=== PATIENT | male | born 1990 | race Two or more races ===

== ENCOUNTER 2016-12-14 09:39 | Emergency (ER) | payer SELFPAY ==
[~2016-12-14] VITALS: Ht 160 cm; Wt 63.5 kg
[2016-12-14 09:39] VITALS: BP 128/78
[2016-12-14 10:08] LABS: BASOPHILS % (AUTO) 0.9 % (0.0-2.0); EOSINOPHILS % (AUTO) 1.5 % (0.0-3.0); LYMPHOCYTES % (AUTO) 22.7 % (20.0-45.0); MEAN CORPUSCULAR HEMOGLOBIN 31.1 PG (27.0-31.0); MEAN CORPUSCULAR HGB CONC 34.4 G/DL (32.0-36.0); MEAN CORPUSCULAR VOLUME 91 FL (80-99); MEAN PLATELET VOLUME 7.1 FL (6.5-10.1); MONOCYTES % (AUTO) 8.6 % (1.0-10.0); NEUTROPHILS % (AUTO) 66.2 % (45.0-75.0); PLATELET COUNT 304 K/UL (150-450); RED BLOOD COUNT 4.66 M/UL (4.70-6.10); RED CELL DISTRIBUTION WIDTH 12.3 % (11.6-14.8); WHITE BLOOD COUNT 8.5 K/UL (4.8-10.8)
--- NOTE | 2016-12-14 10:08 | Emergency Room Report ---
History of Present Illness General Chief Complaint: Alcohol Intoxication Source: Patient, EMS Present Illness HPI Patient presents via EMS. [facility] were called because he was somebody's backyard. They claim he's been drinking alcohol. His Accu-Chek was normal in the field. He refuses to answer. No other history is available. Allergies: Coded Allergies: UNABLE TO ASSESS (Unverified , 12/14/16) Patient History Limited by: medical condition Past Medical History: see triage record Social History Narrative brought by EMS Reviewed Nursing Documentation: PMH: Agreed, PSxH: Agreed Nursing Documentation-PMH Past Medical History: Deferred Review of Systems All Other Systems: limited Physical Exam Vital Signs Date Time Temp Pulse Resp B/P Pulse Ox O2 Delivery O2 Flow Rate FiO2 12/14/16 09:34 98.1 89 16 128/78 100 Room Air Sp02 EP Interpretation: reviewed, normal General Appearance: well appearing, no apparent distress, alert - refuses to answer Head: normocephalic Eyes: bilateral eye PERRL, bilateral eye Scleral Injection ENT: moist mucus membranes Neck: supple Respiratory: lungs clear, normal breath sounds Cardiovascular #1: regular rate, rhythm Cardiovascular #2: 2+ radial (R) Gastrointestinal: normal inspection, normal bowel sounds, non tender, no mass, non-distended Musculoskeletal: back normal, gait/station normal, normal range of motion Neurologic: alert, motor strength/tone normal, DTRs symmetric, sensory intact Psychiatric: depressed affect, other - flat affect Skin: normal inspection, warm/dry, abrasions - R forearm X 2 Medical Decision Making Diagnostic Impression: Primary Impression: Evalution of altered mental status Additional Impressions: Suspected substance abuse AMA ER Course Patient presents with altered level of consciousness. Differential includes alcohol ingestion, other drug ingestion, alert right abnormality, exacerbation of psychiatric illness amongst others. Evaluation will be performed with labs. The patient has a nonfocal neurologic exam even though he is not answering us at this time. There is no evidence of any head trauma and a CT is not ordered. In addition his lungs are clear in the chest x-ray is not ordered at this time. The abrasions on the R forearm need re-evaluation to ascertain if intention granger. The patient is reevaluated and started answering some questions. He refuses to give his name but admits to having imbibed alcohol. He says he has some pain in his stomach at this time. The patient is receiving IV hydration. Denies SI or HI. Writes note that he wants an apartment. Labs significant for mildly elevated CK and negative alcohol. Urine not provided. At 11:10 patient walked out door. I followed him and discussed risk of his leaving. He stated he felt fine. Laboratory Tests Test 12/14/16 09:55 White Blood Count 8.5 K/UL (4.8-10.8) Red Blood Count 4.66 M/UL (4.70-6.10) L Hemoglobin 14.5 G/DL (14.2-18.0) Hematocrit 42.2 % (42.0-52.0) Mean Corpuscular Volume 91 FL (80-99) Mean Corpuscular Hemoglobin 31.1 PG (27.0-31.0) H Mean Corpuscular Hemoglobin Concent 34.4 G/DL (32.0-36.0) Red Cell Distribution Width 12.3 % (11.6-14.8) Platelet Count 304 K/UL (150-450) Mean Platelet Volume 7.1 FL (6.5-10.1) Neutrophils (%) (Auto) 66.2 % (45.0-75.0) Lymphocytes (%) (Auto) 22.7 % (20.0-45.0) Monocytes (%) (Auto) 8.6 % (1.0-10.0) Eosinophils (%) (Auto) 1.5 % (0.0-3.0) Basophils (%) (Auto) 0.9 % (0.0-2.0) Sodium Level 140 mEQ/L (135-145) Potassium Level 3.7 mEQ/L (3.4-4.9) Chloride Level 98 mEQ/L (98-107) Carbon Dioxide Level 28 mEQ/L (20-30) Anion Gap 14 (5-15) Blood Urea Nitrogen 11 mg/dL (7-23) Creatinine 0.7 mg/dL (0.7-1.2) Estimate Glomerular Filtration Rate > 60 mL/min (>60) Glucose Level 107 mg/dL (74-106) H Calcium Level 9.5 mg/dL (8.6-10.2) Total Bilirubin 0.5 mg/dL (0.0-1.2) Aspartate Amino Transferase (AST) 50 U/L (5-40) H Alanine Aminotransferase (ALT) 60 U/L (3-41) H Alkaline Phosphatase 83 U/L (40-129) Total Creatine Kinase 1723 U/L (38-174) H Total Protein 7.5 g/dL (6.6-8.7) Albumin 4.1 g/dL (3.5-5.2) Globulin 3.4 g/dL Albumin/Globulin Ratio 1.2 (1.0-2.7) Salicylates Level < 1 mg/dL (10-30) L Acetaminophen Level < 10 ug/mL (10-30) L Serum Alcohol < 10 mg/dL Last Vital Signs Date Time Temp Pulse Resp B/P Pulse Ox O2 Delivery O2 Flow Rate FiO2 12/14/16 11:06 98.1 89 16 128/78 100 Room Air Status: improved Disposition: AGAINST MEDICAL ADVICE Condition: Improved Referrals: NOT CHOSEN IPA/,REFERRING (PCP) Gerry Stevens M.D. December 14, 2016 10:08
[2016-12-14 10:19] LABS: ACETAMINOPHEN < 10 ug/mL (10-30); ALANINE AMINOTRANSFERASE 60 U/L (3-41); ALBUMIN/GLOBULIN RATIO 1.2 (1.0-2.7); ALCOHOL < 10 mg/dL; ANION GAP 14 (5-15); ASPARTATE AMINO TRANSFERASE 50 U/L (5-40); CALCIUM 9.5 mg/dL (8.6-10.2); CARBON DIOXIDE 28 mEQ/L (20-30); CHLORIDE 98 mEQ/L (98-107); CREATININE 0.7 mg/dL (0.7-1.2); GLOMERULAR FILTRATION RATE > 60 mL/min (>60); HEMOLYSIS 5; POTASSIUM 3.7 mEQ/L (3.4-4.9); SODIUM 140 mEQ/L (135-145); TOTAL PROTEIN 7.5 g/dL (6.6-8.7)
[2016-12-14 11:06] VITALS: BP 128/78
== END 2016-12-14 11:06 | disposition left against medical advice (07) ==
LOC: EDBD 09:39 → EMR 10:03
DX: R41.82 Altered mental status, unspecified (principal); S50.811A Abrasion of right forearm, initial encounter; X58.XXXA Exposure to other specified factors, initial encounter; Y93.9 Activity, unspecified; Y92.9 Unspecified place or not applicable; F10.129 Alcohol abuse with intoxication, unspecified
CPT/HCPCS: 36415; 80053; 82550; 85025; 96374; 96375; 99284; G0480; 80329